=== PATIENT | female | born 1985 | race Caucasian/White ===

== ENCOUNTER 2020-01-23 06:24 | Day surgery (SDC) | payer MEDICAID ==
[~2020-01-23] VITALS: Ht 170.2 cm; Wt 105.5 kg
[~2020-01-23 06:24] MED LIST: FLAGYL500 MG PO; HYDROCODONE-APA1 TAB PO; LEVAQUIN500 MG PO; LEVAQUIN750 MG PO; LINEZOLID600 MG PO; PROZAC20 MG PO; ZOFRAN4 MG PO
[2020-01-23 06:47] LABS: BASOPHILS 0.6 % (0-2); EOSINOPHILS 4.4 % (0-7); HEMOGLOBIN 13.7 g/dL (12-16); IMMATURE GRANULOCYTES 0.2 % (0-5); LYMPHOCYTES 29.6 % (15-50); MCH 28.7 pg (26.0-34.0); MCHC 32.6 g/dL (31.0-37.0); MCV 87.9 fL (80.0-100.0); MEAN PLATELET VOLUME 8.7 fL (7.4-10.4); MONOCYTES 9.4 % (2-11); NEUTROPHILS 55.8 % (40-80); PLATELET COUNT 361 10x3/uL (130-400); RBC 4.78 10x6/uL (4.00-5.40); RDW 12.9 % (11.5-14.5); WBC 8.4 10x3/uL (4.8-10.8)
[2020-01-23 06:55] LABS: ANION GAP 9.2 mmol/L (8-16); CALCIUM 8.8 mg/dL (8.5-10.1); CARBON DIOXIDE 29.7 mmol/L (21.0-32.0); CREATININE - SERUM 1.1 mg/dL (0.6-1.3); POTASSIUM - SERUM 3.9 mmol/L (3.5-5.1)
[2020-01-23 07:08] VITALS: BP 127/83; Ht 170.2 cm; Wt 105.5 kg
[2020-01-23 07:10] LABS: HCG SERUM NEGATIVE (NEGATIVE)
--- NOTE | 2020-01-23 08:04 | NUR ---
DR HANNAH NOTIFIED AND REVIEWED PT'S BEHAVIOR AND ASSESSMENT. PT IS A LOW RISK. RESOURCES GIVEN AND SHE VERBALIZES UNDERSTANDING.
[2020-01-23] MEDS ORDERED: ULTRAM50 MG PO (10:06)
--- NOTE | 2020-01-23 12:35 | NUR ---
INFORMED PT TO HIT CALL LIGHT IF NEEDING TO USE RESTROOM SO NURSE CAN PROVIDE STANDBY ASSIST.
--- NOTE | 2020-01-24 08:11 | OP ---
PATIENT NAME: CHITO FALCON MEDICAL RECORD: [id number] :85 LOCATION:D.OPS ADMISSION DATE: SURGEON: WADE GRESHAM MD DATE OF OPERATION: 01/23/2020 PREOPERATIVE DIAGNOSES: 1. Gallbladder polyps. 2. Morbid obesity with a BMI of 36. POSTOPERATIVE DIAGNOSES: 1. Gallbladder polyps. 2. Morbid obesity with a BMI of 36. PROCEDURE: Laparoscopic cholecystectomy. SURGEON: Wade Gresham MD REPORT OF PROCEDURE: The patient's abdomen was prepped and draped in sterile fashion. A cutdown was made on the superior aspect of the umbilicus, 0 Vicryls were placed on the fascia bilaterally and the fascia was incised with 15-blade. I then bluntly entered the peritoneal cavity and placed a 12-mm Manolo port. Under direct visualization, a 5 mm trocar was placed in the epigastrium and 2 more 5-mm trocars were placed in the right subcostal region. The gallbladder was grasped and elevated. The cystic artery and cystic duct were dissected free and these were clipped proximally and distally and ligated in standard fashion. The patient had a mass on the infundibulum of the gallbladder that appeared to be most likely consistent with a polyp, but may have been a stone. We then took the gallbladder off the liver bed using electrocautery and placed into the right upper quadrant. The liver bed was treated with electrocautery to stop any bleeding. We irrigated out the right upper quadrant and assured there was no bleeding or bile leakage. The ports and insufflation were then removed and the gallbladder was taken out through the umbilicus. The umbilical fascia was closed with interrupted 0 Vicryls times 3. The wounds were then irrigated out with normal saline and infused with 10 mL of 0.25% Marcaine with epinephrine. The skin incisions were all closed with subcutaneous 5-0 Monocryl and dressed appropriately. COMPLICATIONS: None. CONDITION: Stable. ANESTHESIA: General endotracheal and local. BLOOD LOSS: Minimal. TRANSINT:[id number] Voice Confirmation ID: [id number] DOCUMENT ID: [id number] OPERATIVE REPORT [id number] CHITO FALCON WADE GRESHAM MD at 0811 CC: [id number] DICTATION DATE: 01/23/20 1010 BUSINESS DIRECTOR: 01/23/20 1847 DEP SDC 01/23/20 [facility] [address] [id number]
== END 2020-01-23 13:20 | disposition home or self-care (01) ==
LOC: D.OPS 06:24 → D.PAN 08:30 → D.OPS 13:20
PROVIDERS: Anesthesiology; ATTEND Surgery
DX: K82.4 Cholesterolosis of gallbladder (principal); E66.01 Morbid (severe) obesity due to excess calories; Z68.36 Body mass index [BMI] 36.0-36.9, adult